=== PATIENT | male | born 1950 | race Caucasian/White ===

== ENCOUNTER 2022-01-07 13:03 | Outpatient (CLI) | payer MEDICARE, BC | END 2022-01-07 13:04 | disposition home or self-care (01) | LOC: CSHSPEC 13:03 | PROVIDERS: ATTEND Specialist | DX: S32.000A Wedge compression fracture of unspecified lumbar vertebra, initial encounter for closed fracture (principal); M48.061 Spinal stenosis, lumbar region without neurogenic claudication | CPT/HCPCS: 72148 ==

== ENCOUNTER 2022-12-01 09:49 | Outpatient (CLI) | payer MEDICARE, BC | END 2022-12-01 09:50 | disposition home or self-care (01) | LOC: CSHWCC 09:49 | PROVIDERS: ATTEND Nurse Practitioner Family | DX: S81.802D Unspecified open wound, left lower leg, subsequent encounter (principal); R60.0 Localized edema | CPT/HCPCS: 11042; 11045; 29581; 97139; G0463; 99202 ==